=== PATIENT | male | born 1990 | race Caucasian/White ===

== ENCOUNTER 2022-03-10 00:22 | Emergency (ER) | payer MEDICARE ==
[2022-03-10 03:01] LABS: CHLORIDE,CL 101 mmol/L (98-107); SODIUM,NA 136 mmol/L (136-145)
[2022-03-10 03:02] LABS: ESTIMATED GFR 87 mL/min (>=60)
[2022-03-10 03:03] LABS: ANION GAP 15.5 mEq/L (7-13)
== END 2022-03-10 01:50 | disposition home or self-care (01) ==
LOC: DL.ED 00:22
DX: G40.909 Epilepsy, unspecified, not intractable, without status epilepticus (principal); Z91.19 Patient's noncompliance with other medical treatment and regimen
CPT/HCPCS: 36415; 80053; 80164; 85025; 99284

== ENCOUNTER 2022-04-15 03:10 | Emergency (ER) | payer MEDICARE ==
[2022-04-15] MEDS ORDERED: Ondansetron 4 MG Tab.DIS PO ONE (15:50)
== END 2022-04-15 16:06 | disposition home or self-care (01) ==
LOC: DL.ED 03:10
DX: Z13.89 Encounter for screening for other disorder (principal); F17.210 Nicotine dependence, cigarettes, uncomplicated; Z88.5 Allergy status to narcotic agent
CPT/HCPCS: 99284

== ENCOUNTER 2022-05-09 00:30 | Emergency (ER) | payer MEDICARE ==
[2022-05-09 01:35] LABS: ANION GAP 11.7 mEq/L (7-13); CHLORIDE,CL 104 mmol/L (98-107); ESTIMATED GFR 83 mL/min (>=60); SODIUM,NA 141 mmol/L (136-145)
== END 2022-05-09 01:20 | disposition left against medical advice (07) ==
LOC: DL.ED 01:16
DX: R56.9 Unspecified convulsions (principal); Z53.29 Procedure and treatment not carried out because of patient's decision for other reasons
CPT/HCPCS: 36415; 80053; 80164; 80307; 85025; 99285